=== PATIENT | female | born 1950 | race Caucasian/White ===

== ENCOUNTER 2020-05-21 06:55 | Outpatient (NON) | payer MEDICARE, OTHER, SELFPAY ==
[2020-05-21 18:16] LABS: SARS-CoV-2 RNA PCR Negative
== END 2020-05-21 06:56 ==
PROVIDERS: PCP Family Medicine; Visit Provider Physician Assistant
DX: R09.89 Other specified symptoms and signs involving the circulatory and respiratory systems (principal); Z20.828 Contact with and (suspected) exposure to other viral communicable diseases
CPT/HCPCS: 87635; C9803; U0003

== ENCOUNTER → 2020-05-24 09:45 | Outpatient (CLI) | payer MEDICARE, SELFPAY ==
--- NOTE | ~2020-05-24 | XR_ITS ---
XR chest 2V DATE: 05/24/2020 10:04 INDICATION: Cough TECHNIQUE: PA and lateral views COMPARISON: 05/04/2015 PA and lateral views FINDINGS: No pulmonary infiltrate or consolidation, pleural effusion or pulmonary vascular congestion or pneumothorax. No hilar or mediastinal enlargement. Heart size is within normal limits. Moderate osteopenia. IMPRESSION: No active cardiopulmonary disease Reviewed, dictated and finalized at location A.
== END ==
PROVIDERS: PCP Family Medicine; Visit Provider Nurse Practitioner Family
DX: R05 Cough (principal)
CPT/HCPCS: 71046

== ENCOUNTER 2020-06-21 08:49 | Outpatient (CLI) | payer MEDICARE, SELFPAY ==
--- NOTE | ~2020-06-21 | MM_ITS ---
EXAMINATION: MM screening lisa BI w elif HISTORY: Screening TECHNIQUE: Craniocaudal and mediolateral oblique 3-D tomosynthesis images were obtained and synthetic 2-D images were generated. CAD analysis was submitted and interpreted. COMPARISON: Comparison to multiple prior studies sequentially, with oldest reviewed study dated 02/02. BREAST PARENCHYMAL COMPOSITION: There are scattered areas of fibroglandular density. FINDINGS: There is no evidence of suspicious mass, calcification, or architectural distortion to sugg est malignancy in either breast. There has been no suspicious interval change. IMPRESSION: 1. No mammographic evidence of malignancy. 2. Recommend routine screening mammography in one year. BI-RADS Category 1: Negative Reviewed, dictated and finalized at location A. CUTTER
--- NOTE | ~2020-06-21 | DEXA_ITS ---
Bone Density Report Name: Marce Cerrato Age: 70 Sex: Female Ethnicity: White Date of : 1950 Indication: postmenopausal; height loss; hysterectomy; Referring Provider: Geno Bledsoe Study: Bone densitometry was performed. Exam Date: June 21, 2020 Accession number: [id number] Bone Density: Region BMD T-score Z-score Classification AP Spine (L1-L4) 1.130 0.8 3.0 Normal Femoral Neck (Left) 0.753 -0.9 1.0 Normal Total Hip (Left) 0.919 -0.2 1.4 Normal Total Hip Bilateral Avg 0.913 -0.3 1.4 Normal Femoral Neck (Right) 0.722 -1.1 0.8 Osteopenia Total Hip (Right) 0.905 -0.3 1.3 Normal World Health Organization criteria for BMD impression classify patients as: Normal (T-score at or above -1.0), Osteopenia (T-score between -1.0 and -2.5), or Osteoporosis (T-score at or below -2.5). 10-year Fracture Risk(1): Major Osteoporotic Fracture 8.7% Hip Fracture 1.1% Reported Risk Factors: [place] (), Neck BMD=0.722, BMI=36.0 (1) FRAX(R) Version 3.08. Fracture probability calculated for an untreated patient. Fracture probability may be lower if the patient has received treatment. Previous Exams: Region Exam Age BMD T-score BMD Change BMD Change Date g/cm2 vs Baseline vs Previous AP Spine(L1-L4) 06/21/2020 70 1.130 0.8 0.016(1.4%)# 0.033(3.0%)* 02/08/2015 64 1.097 0.5 -0.017(-1.6%)# 0.025(2.3%)# 02/01/2013 62 1.072 0.2 -0.042(-3.8%)# -0.042(-3.8%)# 10/16/2010 60 1.114 0.6 Total Hip(Left) 06/21/2020 70 0.919 -0.2 -0.023(-2.5%)# -0.023(-2.5%) 02/08/2015 64 0.942 0.0 0.000(0.0%)# -0.015(-1.6%)# 02/01/2013 62 0.957 0.1 0.015(1.6%)# 0.015(1.6%)# 10/16/2010 60 0.942 0.0 Total Hip(Right) 06/21/2020 70 0.905 -0.3 0.011(1.2%)# -0.023(-2.5%) 02/08/2015 64 0.929 -0.1 0.034(3.9%)# 0.002(0.2%)# 02/01/2013 62 0.927 -0.1 0.033(3.7%)# 0.033(3.7%)# 10/16/2010 60 0.894 -0.4 *Denotes significance at 95% confidence level, LSC for AP Spine = 0.022 g/cm2, LSC for Total Hip = 0.027 g/cm2 Clinical Information Provided by Patient: Has used the following medications: Vitamin D, Calcium Has the following medical conditions: Hysterectomy Patient maximum height was 66 Menopause Age: 48 No regular weight bearing exercise Drinks caffeinated beverages Onset of menses at age 11 Number of children 2 Impression: The patient has low bone mass, based on
== END 2020-06-21 08:50 | disposition home or self-care (01) ==
LOC: ANHIMG 08:49
PROVIDERS: PCP Family Medicine; Visit Provider Family Medicine
DX: Z12.31 Encounter for screening mammogram for malignant neoplasm of breast (principal); Z78.0 Asymptomatic menopausal state; M85.851 Other specified disorders of bone density and structure, right thigh
CPT/HCPCS: 77063; 77067; 77080

== ENCOUNTER 2020-08-23 13:32 | Outpatient (CLI) | payer MEDICARE, OTHER, SELFPAY ==
--- NOTE | 2020-08-24 13:54 | P.PCNPFT_ITS ---
PFT Interpretation This is a pulmonary function test with pre and post-bronchodilator spirometry, plethysmography and diffusing capacity. The test was performed and results interpreted in accordance with the 2019 and 2005 ATS/ERS Task Force guidelines respectively using the James/Fidelina reference equations. Findings: Spirometry: There is decreased maximal expiratory airflow at Lung follow-up low lung volumes with a mildly concave expiratory flow tracing. The pre- bronchodilator FVC is 2.86, 99% predicted. The pre-bronchodilator FEV1 is 1.96 L, 95% predicted. The FEV1:FVC ratio is 69%. The post-bronchodilator FVC is 2.88 L, representing a 1% increase. The post-bronchodilator FEV1 is 2.02 L, representing a 3% increase. Plethysmography: The total lung capacity is 5.47 L, 110% predicted. The functional residual capacity is 2.44 L, 103% predicted. The residual volume is 2.42 L, 119% predicted. Diffusing capacity: The absolute diffusing capacity is 18.2, 76% predicted. The diffusing capacity corrected for alveolar volume is 3.97, 112% predicted. Impression: The spirometry demonstrates decreased airflow at low lung volumes with a normal FEV1 and mildly decreased FEV1:FVC ratio. This may be consistent with small airways disease. There is no significant improvement after inhaling a single dose of albuterol. The lung volumes are normal. The absolute diffusing capacity is normal. There are no prior studies for comparison
== END 2020-08-23 13:33 | disposition home or self-care (01) ==
PROVIDERS: PCP Family Medicine; Visit Provider Family Medicine
DX: R05 Cough (principal); R94.2 Abnormal results of pulmonary function studies
CPT/HCPCS: 94060; 94726; 94729

== ENCOUNTER 2020-09-17 06:52 | Outpatient (NON) | payer MEDICARE, SELFPAY ==
[2020-09-17 19:18] LABS: SARS-CoV-2 RNA PCR Positive
== END 2020-09-17 06:53 ==
LOC: ANHCOVIDDT 06:54
PROVIDERS: PCP Family Medicine; Visit Provider Nurse Practitioner Family
DX: U07.1 COVID-19 (principal)
CPT/HCPCS: C9803; U0003; U0005

== ENCOUNTER → 2021-01-14 09:45 | Outpatient (CLI) | payer MEDICARE, SELFPAY ==
--- NOTE | ~2021-01-14 | XR_ITS ---
EXAMINATION: XR knee RT 3V DATE: 01/14/2021 09:57 INDICATION: Right knee pain. TECHNIQUE: 3 views of right knee were obtained. COMPARISON: Right knee radiographs 02/08/2017 FINDINGS: Bone alignment is normal. There is mild tricompartmental osteoarthritis. There is a small k nee joint effusion. IMPRESSION: 1. Mild right knee osteoarthritis. 2. Small right knee joint effusion. Reviewed, dictated and finalized at location A.
== END ==
PROVIDERS: PCP Family Medicine; Visit Provider Physician Assistant
DX: M17.11 Unilateral primary osteoarthritis, right knee (principal); M25.461 Effusion, right knee
CPT/HCPCS: 73562

== ENCOUNTER 2021-07-17 07:23 | Observation (INO) | payer MEDICARE, OTHER, SELFPAY ==
[2021-07-17] VITALS (55 sets, daily range): BP systolic 113–188; BP diastolic 70–99; PULSE 69–115; RESP 14–32; TEMP 36.6–37; O2SAT 92–100; BMI 31.2
--- NOTE | 2021-07-17 | ECHO_ITS ---
Patient Info Name: Marce Cerrato Age: 71 years : 1950 Gender: Female Ht: 65 in Wt: 209 lbs BSA: 2.12 m2 HR: 68 bpm BP: 188 / 93 mmHg Technical Quality: Fair Exam Date: 07/17/2021 11:13 AM Exam Location: [facility] Patient Status: Emergency Admit Date: 07/17/2021 Staff Ordering Physician: Armando Cobos DO Cuff Presser: Karlee Merida RDCS Attending Provider: Mg Willson MD Referring Physician: Papito RAJPUT; Exam Type: CA echo doppler color flow Study Info Indications R07.9 - Chest pain, unspecified Complete two-dimensional, color flow and Doppler transthoracic echocardiogram is performed. Summary 1. Complete two-dimensional, color flow and Doppler transthoracic echocardiogram is performed. 2. Left ventricular chamber dimension is normal. 3. Left ventricular systolic function is normal, estimated at 60-65%. 4. The left ventricular diastolic function is grade I diastolic dysfunction. 5. E/e' 6 is not elevated. 6. The mitral valve has mildly calcified annulus. 7. No pulmonary hypertension, estimated pulmonary arterial systolic pressure is 26 mmHg. Left Ventricle E/e' 6 is not elevated. Left ventricular chamber dimension is normal. Left ventricular systolic function is normal, estimated at 60-65%. The left ventricular diastolic function is grade I diastolic dysfunction. Right Ventricle Right ventricular chamber dimension is normal. Right ventricular systolic function is normal. Left Atria Left atrial chamber dimension is normal. Right Atria Right atrial chamber dimension is normal. Aortic Valve The aortic valve is trileaflet. There is no aortic valve stenosis. There is no aortic valve regurgitation. Pulmonic Valve There is no pulmonic regurgitation. Mitral Valve The mitral valve has mildly calcified annulus. There is no mitral valve stenosis. There is no mitral valve regurgitation. Tricuspid Valve There is no tricuspid valve regurgitation. No pulmonary hypertension, estimated pulmonary arterial systolic pressure is 26 mmHg. Pericardium/Pleural There is no pericardial effusion. Inferior Vena Cava Normal inferior vena cava with >50% collapse upon inspiration consistent with normal right atrial pressure, 5 mmHg. Aorta The aortic root size at the sinus of Valsalva is normal. Left Ventricular Outflow Tract Name Value Normal LVOT 2D LVOT Diameter 2.0 cm LVOT Doppler LVOT Peak Gradient 4 mmHg LVOT Mean Gradient 3 mmHg LVOT VTI 21 cm LVOT VTI/AV VTI Ratio 0.9 LVOT Stroke Volume 66 ml LVOT CO 4.8 l/min LVOT CI 2.3 l/min/m2 Pulmonic Valve Name Value Normal RVOT Doppler RVOT Peak Gradi
--- NOTE | ~2021-07-17 | XR_ITS ---
EXAMINATION: XR chest 1V portable DATE: 07/17/2021 07:52 INDICATION: Chest pain TECHNIQUE: frontal view of the chest was obtained. COMPARISON: Chest radiograph dated 05/24/2020 FINDINGS: Slight interval decrease in lung volumes with mild streaky bibasilar atelectasis. No pulmonary edema, pleural effusion or pneumothorax. The cardiomediastinal silhouette is normal. Mild lower thoracic le vocurvature with moderate spondylosis. IMPRESSION: 1. Mild streaky bibasilar atelectasis. Reviewed, dictated and finalized at location A. K BREAKER OPERATOR
--- NOTE | ~2021-07-17 | NM_ITS ---
EXAMINATION: NM luda stress w perfusion DATE: 07/18/2021 09:37 INDICATION: Chest pain TECHNIQUE: Rest images were obtained following intravenous administration of 10.55 mCi Tc99m tetrofos min (Myoview). The patient was infused intravenously with Lexiscan (Regadenoson). Then, 32.67 mCi Tc9 9m tetrofosmin (Myoview) was administered intravenously, and stress images were obtained in supine po sition. Repeat stress images were obtained in the prone position. Data was reconstructed into short a xis and horizontal and vertical long axis SPECT images. Gated SPECT images were also obtained. COMPARISON: None. FINDINGS: There is no definite reversible or fixed perfusion abnormality to suggest ischemia or infar ction. There is normal left ventricular chamber size, wall motion and ejection fraction. Left ventr icular ejection fraction measures >70%. IMPRESSION: 1. Normal myocardial perfusion at rest and during stress. 2. Left ventricular ejection fraction measuring >70%. Reviewed, dictated and finalized at location A. AS MARKER
--- NOTE | 2021-07-17 08:07 | ECG_ITS ---
Measurements Intervals [place] Rate: 110 P: 7 [place]: 155 QRS: 1 QRSD: 106 T: 29 QT: 343 QTc: 465 Interpretive Statements SINUS TACHYCARDIA INCOMPLETE RIGHT BUNDLE BRANCH BLOCK DELAYED PRECORDIAL R/S TRANSITION BASELINE ARTIFACT- II, III, AVR, V1 ABNORMAL ECG Electronically Signed On 07-17-2021 14:53:36 WIRE DRAWING MACHINE TENDER by Armando Cobos D.O.
[2021-07-17] MEDS: ASPIRIN 81 MG CHEWABLE TABLET 324 MG PO (08:15)
--- NOTE | 2021-07-17 08:34 | ED.CHESTPAIN ---
HPI - Chest Pain General Chief Complaint: Chest Pain Stated Complaint: chest pain Time Seen by Provider: 07/17/21 07:28 Source: patient and family Mode of arrival: ambulatory Limitations: no limitations History of Present Illness HPI narrative: Patient presents with central chest heaviness associated with shortness of breath started 1:30 last night while trying to go to bed. Radiating to the upper back, and throat. Patient denies aggravating or relieving factors, the pain has been constant since, slightly less painful compared to earlier hours. Patient is fully vaccinated for COVID-19. Patient denies any fever, chills, nausea, vomiting, coughing or abdominal pain. History of GERD, on vitamins, drinks occasionally, positive family history of coronary artery disease Related Data Home Medications Medication Instructions Recorded Confirmed calcium carbonate 600 mg calcium 600 mg PO DAILY 07/27/19 02/18/21 (1,500 mg) tablet cholecalciferol (vitamin D3) 25 25 mcg PO DAILY 07/27/19 02/18/21 mcg (1,000 unit) capsule loperamide 2 mg tablet 2 mg PO Q4H PRN 07/27/19 02/18/21 multivit with 1 tablet PO DAILY 07/27/19 02/18/21 ibhndwsq-pgim-ET-lutein 8 mg iron-400 mcg-300 mcg tablet vit C 250 mg-vit E 90 mg-zinc 40 1 tablet PO ONCE cap 07/27/19 02/18/21 mg-copper 1 fw-unaslk-wwzhec capsule famotidine 20 mg tablet 20 mg PO DAILY 08/19/20 02/18/21 Allergies Allergy/AdvReac Type Severity Reaction Status Date / Time tramadol Allergy Mild unk Verified 02/18/21 09:29 codeine Allergy Unknown Unknown Verified 02/18/21 09:29 Review of Systems Review of Systems: CONSTITUTIONAL: Denies fever, chills, or sweats. EYES: Denies visual changes, redness, or discharge. ENT: Denies rhinorrhea, congestion, sore throat, or otalgia. CARDIOVASCULAR: Denies chest pain, palpitations, or edema. RESPIRATORY: Denies cough or dyspnea. GASTROINTESTINAL: Denies abdominal pain, nausea, vomiting, or diarrhea. GENITOURINARY: Denies dysuria or hematuria. SKIN: Denies rash or itching. MUSCULOSKELETAL: Denies back pain, joint pain, or myalgia. NEUROLOGIC: Denies headache, numbness, or weakness. PSYCHIATRIC: Denies anxiety or depression. [facility] Past Medical History Medical History Gastroesophageal reflux disease Surgical History Surgical History History of bladder suspension procedure History of hysterectomy History of unilateral oophorectomy Social History Social History Smoking status: Never smoker Second hand tobacco smoke exposure: Yes Alcohol intake: current Drinks per week: 1 Substance use: never Substance use type: does not use Gender identity (if verbalized by the patient): Female Sexual Orientation (if Verbalized by the Patient): Straight or Heterosexual Exam Narrative: General appearance: Well-developed, well-nourished Skin: Normal color Head: Normocephalic, nontraumatic Eyes: Clear conjunctiva ENT: Oropharynx normal, ears normal, nose normal Neck: Supple, nontender Chest and respiratory: Airway patent, no respiratory distress, no accessory muscle use, mild diffuse distal sternal tenderness Heart: Regular rate/rhythm Abdomen: Soft, nontender, no organomegaly, quiet bowel sounds Vascular: Normal peripheral pulses, normal capillary refill. Musculoskeletal: Normal range of motion, nontender back Neurologic: Alert and oriented ?3, WIRE SAWYER is normal as tested, no gross motor deficit Course Course Emergency Course: Stable Vital Signs Vital signs: Vital Signs Temperature 36.6 C
[2021-07-17 08:41] LABS: Basophils Percent Auto 0.2 % (0.2-1.2); Eosinophils Absolute Auto 0.1 K/mm3 (0-0.3); Eosinophils Percent Auto 0.4 % (0-4.4); Hematocrit 42.4 % (37.0-47.0); Hemoglobin 13.8 g/dL (12.0-15.0); Immature Granulocyte Absolute 0.04 K/mm3 (0.00-0.031); Immature Granulocyte Percent A 0.3 % (0-0.5); Lymphocytes Absolute Auto 1.33 K/mm3 (0.9-3.2); Lymphocytes Percent Auto 10.3 % (18.3-44.2); Mean Corpuscular HGB Conc 32.5 g/dl (32-36); Mean Corpuscular Hemoglobin 30.1 pg (26-34); Mean Corpuscular Volume 92.6 fl (80-100); Mean Platelet Volume 10.8 fl (7.4-10.4); Monocytes Absolute Auto 0.7 K/mm3 (0.1-0.6); Monocytes Percent Auto 5.7 % (2.6-8.5); Neutrophils Absolute Auto 10.7 K/mm3 (1.3-6.7); Neutrophils Percent Auto 83.1 % (45.5-73.1); Platelet Count Result 197 k/mm3 (150-375); Red Blood Count 4.58 M/mm3 (4.2-5.4); Red Cell Distribution Width 13.4 % (11.5-14.5); White Blood Count 12.9 K/mm3 (4.5-10.0)
[2021-07-17 08:53] LABS: Alanine Aminotransferase 24 U/L (4-35); Albumin Level 4.7 g/dL (3.5-5.1); Alkaline Phosphatase 125 U/L (38-126); Anion Gap 10 mmol/L (8-16); Aspartate Amino Transferase 29 U/L (14-36); Bilirubin,Total 0.6 mg/dL (0.2-1.3); Blood Urea Nitrogen 16 mg/dL (7-17); Calcium 9.5 mg/dL (8.4-10.2); Carbon Dioxide 26 mmol/L (22-30); Chloride 101 mmol/L (98-107); Estimated CRCL calculation 70 ml/min; Estimated Glomerular Filt Rate > 60; Glucose 123 mg/dL (65-110); Potassium 4.1 mmol/L (3.4-5.0); Prothrombin Time 13.1 Seconds (11.1-14.7); Sodium 137 mmol/L (137-145)
[2021-07-17 08:54] LABS: Partial Thromboplastin Time 24.2 SECONDS (22.3-36.8)
[2021-07-17 08:56] LABS: D Dimer 0.49 ug/mL (<0.48)
[2021-07-17 09:04] LABS: NT Pro B Type Natriuretic Pept 34 pg/mL (5-100); Troponin I < 0.012 ng/mL (0.000-0.034)
[2021-07-17] MEDS: METOPROLOL TARTRATE TAB 25 MG, METOPROLOL TARTRATE TAB 12.5 MG 37.5 MG PO (10:19)
[2021-07-17] MEDS: NITROGLYCERIN OINTMENT 1 INCH DOSE TRANSDERM (11:19)
--- NOTE | 2021-07-17 11:34 | PM.IMHP ---
H&P: HPI History of Present Illness Date/Time: 07/17/21 11:34 Reason for consult: Chest pain. 71 yr old woman presented to ER for chest pains. She has a history of colitis, small airway disease, mild dyslipidemia not on treatment, mild hypertension and not on treatment, covid infection on 09/17/20. Reports that she was up on her I-Pad last night and at 1:30 am she noted severe chest pressure like an elephant sitting on her chest. She then went to sit on her recliner and dozed off and woke up later with similar chest pains. Pain radiates to her back. She decided to come in to ER for evaluation. Currently after receiving aspirin her cp is at 1/10 and she is resting comfortably. She can walk a couple of blocks without any problems. She has caught herself waking up and had trouble breathing thinking it could be sleep apnea and has some daytime sleepiness. Denies orthopnea, PND, edema, dizziness, palpitations. Had Lexiscan myoview on 07/15/20 that was normal. PFT on 08/24/20 shows small airway disease. Chief Complaint: Chest pain Review of Systems Review of Systems: All systems reviewed & are unremarkable except as noted in HPI and below Constitutional: Constitutional: Reports as per HPI, Denies chills, Reports daytime sleepiness and Denies fever(s) Cardiovascular: Cardiovascular: Reports as per HPI, Reports chest pain, Denies irregular heart rhythm, Denies leg edema and Denies lightheadedness Respiratory: Respiratory: Reports as per HPI and Denies dyspnea Gastrointestinal: Gastrointestinal: Reports as per HPI and Denies abdominal pain Genitourinary: Genitourinary: Reports as per HPI and Denies dysuria Musculoskeletal: Musculoskeletal: Reports as per HPI Neurologic: Reports as per HPI, Denies dizziness and Denies syncope [facility] Past Medical History Medical History Gastroesophageal reflux disease Surgical History Surgical History History of bladder suspension procedure History of hysterectomy History of unilateral oophorectomy Social History Social History Smoking status: Never smoker Second hand tobacco smoke exposure: Yes Alcohol intake: current Drinks per week: 1 Substance use: never Substance use type: does not use Gender identity (if verbalized by the patient): Female Sexual Orientation (if Verbalized by the Patient): Straight or Heterosexual Meds Home Medications and Allergies Home Medications Medication Instructions Recorded Confirmed Type calcium carbonate 600 mg calcium 600 mg PO DAILY 07/27/19 02/18/21 History (1,500 mg) tablet cholecalciferol (vitamin D3) 25 25 mcg PO DAILY 07/27/19 02/18/21 History mcg (1,000 unit) capsule loperamide 2 mg tablet 2 mg PO Q4H PRN 07/27/19 02/18/21 History multivit with 1 tablet PO DAILY 07/27/19 02/18/21 History zwhvfjsq-oaki-RC-lutein 8 mg iron-400 mcg-300 mcg tablet vit C 250 mg-vit E 90 mg-zinc 40 1 tablet PO ONCE cap 07/27/19 02/18/21 History mg-copper 1 ds-jdgxru-xrdpth capsule famotidine 20 mg tablet 20 mg PO DAILY 08/19/20 02/18/21 History albuterol sulfate 90 mcg/actuation See Rx Instructions INHALATION Q4H 09/18/20 02/18/21 Rx aerosol inhaler PRN #6.7 g sulfamethoxazole 800 1 tablet PO Q12H #6 tablet 05/07/21 Rx mg-trimethoprim 160 mg tablet Allergies Allergy/AdvReac Type Severity Reaction Status Date / Time tramadol Allergy Mild unk Verified 02/18/21 09:29 codeine Allergy Unknown Unknown Verified 02/18/21 09:29 Vital Signs Vital Signs - 24 hr 07/17/21 07:27 07/17/21 07:35 07/17/21 07:45 Temperature 97.8 F 97.8 F Pulse Rate 102 H 102 H 115 H Respiratory Rate 20 20 19 Blood Pressure 188/93 H 188/93 H Pulse Oximetry 97 100 92 07/17/21 07:46 07/17/21 08:28 07/17/21 08:30 Temperature Pulse Rate 113 H 101 H Respiratory Rate 23 H 20 16 Blood
[2021-07-17 11:52] LABS: Troponin I < 0.012 ng/mL (0.000-0.034)
[2021-07-17 15:44] LABS: Troponin I < 0.012 ng/mL (0.000-0.034)
--- NOTE | 2021-07-17 20:05 | ADMGEN ---
This patient, Marce Cerrato, was admitted to [facility]. Patient/family oriented to hospital policies and general routines including ID bracelet, bed and alarms, visiting hours, pain management, procedures, bathroom and other care routines, personal items, smoking policy, room service/diet, and visiting hours. Information on how to activate the Rapid Response Team has been discussed. Patient/Family are encouraged to report perceived risks to care and to ask questions if they do not understand what they are told or what they should do.
[2021-07-18] VITALS (8 sets, daily range): BP systolic 117–135; BP diastolic 62–77; PULSE 72–85; RESP 18–19; TEMP 36.6–36.7; O2SAT 92–96
--- NOTE | 2021-07-18 08:00 | EST_ITS ---
Patient Info Name: Marce Cerrato Age: 71 years : 1950 Gender: Female Ht: 65 in Wt: 187 lbs BSA: 2.00 m2 HR: 87 bpm BP: 116 / 64 mmHg Heart Rhythm: Sinus Rhythm Exam Date: 07/18/2021 8:13 AM Exam Location: [facility] Stress Patient Status: Inpatient Admit Date: 07/17/2021 Staff Ordering Physician: Armando Cobos DO Attending Provider: Armando Cobos DO Exercise Technologist: Pippa Thompson CT Exercise Physician: Armando Cobos DO Exam Type: CA stress luda w NM Study Info Indications R07.9 - Chest pain, unspecified A regadenoson stress test was performed. Summary 1. 1. Negative lexiscan stress test for ischemic ST changes by ECG criteria. 2. 2. Stable hemodynamics throughout the test. 3. 3. Nuclear scan to follow and will be reported separately. Please correlate with it. 4. 4. Patient informed of the above results. Protocol: Lexiscan Stress ECG Details Stage: REST Duration (min): 1 min : 5 sec HR (bpm): 85 SBP (mmHg): 116 DBP (mmHg): 64 Stage: REST Duration (min): 7 min : 35 sec HR (bpm): 84 SBP (mmHg): 116 DBP (mmHg): 64 Stage: STAGE 1 Duration (min): 0 min : 59 sec HR (bpm): 100 SBP (mmHg): 134 DBP (mmHg): 53 Stage: RECOVERY Duration (min): 1 min : 0 sec HR (bpm): 104 SBP (mmHg): 134 DBP (mmHg): 53 Stage: RECOVERY Duration (min): 2 min : 0 sec HR (bpm): 102 SBP (mmHg): 134 DBP (mmHg): 53 Stage: RECOVERY Duration (min): 2 min : 28 sec HR (bpm): 100 SBP (mmHg): 117 DBP (mmHg): 53 Rest HR: 84 bpm Peak HR: 105 bpm Rest Sys BP: 116 mmHg Peak Sys BP: 134 mmHg Max Pred HR: 147 bpm % Max Pred HR: 71 % Target HR: 125 bpm Max RPP: 14,070 bpm*mmHg Termination Reason: Completed protocol Cardiac Symptoms: None Total Time: 1 min : 0 sec Rest Ray BP: 64 mmHg Peak Ray BP: 53 mmHg Total Dose: 0.4 mg Resting ECG Sinus rhythm. Stress ECG No ST changes. Arrhythmias None. Report Signatures
--- NOTE | 2021-07-18 10:48 | P.DS_ITS ---
DS: Admitting Diagnosis Discharge Date 07/18/21 Admitting Diagnosis Chest pain DS: Summary Hospital Course Hospital Course: Patient was admitted for chest pain radiating to her back. She was given aspirin and NTP and pain resolved. She was r/o for CO by troponin and EKG. She had lexiscan myoview stress test that shows no ischemia. Echo is completely normal. Vitals are stable. She will be discharged home and f/u with me in 2 weeks. Time Spent with Patient Time attestation: Total time spent providing and/or coordinating discharge services: Time spent: Less than 30 minutes Exam Const: General: cooperative, healthy appearing and comfortable Nutritional Appearance: obese Resp: Auscultation: clear to auscultation bilaterally, no crackles, no rales, no rhonchi and no wheezes Cardio: Jugular venous distension: no JVD Rate: regular rate Rhythm: regular rhythm Heart sounds: no murmurs Peripheral pulses: dorsalis pedis present GI: GI Palp: No abdominal tenderness and Yes Soft to palpation Neuro: General: oriented to person, oriented to place and oriented to time Extrem: Right lower extremity: no edema Left lower extremity: no edema DS: Data Data Completed and Pending Labs on day of discharge: Labs from last 24 hours 07/17/21 07/17/21 14:21 11:17 Troponin I < 0.012 < 0.012 Discharge Plan Discharge Discharging Clinician: Armando Cobos Patient Disposition: Home, Self-Care Activity: as tolerated Diet: regular Patient Instructions: Antibiotic Form Stand Alone Forms: General Discharge Information Follow-up/Referrals: Armando Cobos, DO [Physician] - (F/U 2 weeks) Discharge Medications: No Action Centrum Silver Women 8 mg iron-400 mcg-300 mcg tablet 1 tablet PO DAILY RF: 0 PreserVision AREDS-2 [id number] mn-vwvs-gl-mg capsule 1 tablet PO ONCE RF: 0 cholecalciferol (vitamin D3) [Vitamin D3] 25 mcg (1,000 unit) capsule 25 mcg PO DAILY RF: 0 calcium carbonate 600 mg calcium (1,500 mg) tablet 600 mg PO DAILY RF: 0 famotidine [Pepcid AC] 20 mg tablet 20 mg PO DAILY RF: 0 fluticasone propionate [Flonase] 50 mcg/actuation [place],Suspension 1 spray INTRANASAL DAILY RF: 0 Date of admission: 07/17/21 10:10 Primary Care Provider: Ajay Irvin Admitting Provider: Armando Cobos Attending physician on admission: Armando Cobos Condition: Serious
[2021-07-18] MEDS: ASPIRIN 81 MG CHEWABLE TABLET PO (11:18)
== END 2021-07-18 13:18 | disposition home or self-care (01) ==
LOC: ANHED 08:15 → ANHCPC 13:38
PROVIDERS: Admitting Provider Internal Medicine Cardiovascular Disease; Emergency Provider Emergency Medicine; PCP Family Medicine; Visit Provider Internal Medicine Cardiovascular Disease
DX: R07.9 Chest pain, unspecified (principal); K21.9 Gastro-esophageal reflux disease without esophagitis; G47.10 Hypersomnia, unspecified; R06.02 Shortness of breath; I10 Essential (primary) hypertension; E78.5 Hyperlipidemia, unspecified
CPT/HCPCS: 36415; 71045; 78452; 80053; 83880; 84484; 85025; 85380; 85610; 85730; 93005; 93017; 93306; 99285; A9270; A9502; G0378; J2785

== ENCOUNTER 2021-07-31 15:18 | Outpatient (CLI) | payer MEDICARE, SELFPAY ==
--- NOTE | ~2021-07-31 | MM_ITS ---
EXAMINATION: MM screening lisa BI w elif HISTORY: Screening mammogram TECHNIQUE: Craniocaudal and mediolateral oblique 3-D tomosynthesis images were obtained and synthetic 2-D images were generated. CAD analysis was submitted and interpreted. COMPARISON: 06/21/2020, 06/12/2019, 06/02/2018 bilateral screening mammogram examinations BREAST PARENCHYMAL COMPOSITION: There are scattered areas of fibroglandular density. FINDINGS: There is no evidence of suspicious mass, calcification, or architectural distortion to sugg est malignancy in either breast. There has been no suspicious interval change. IMPRESSION: 1. No mammographic evidence of malignancy. 2. Recommend routine screening mammography in one year. BI-RADS Category 1: Negative Reviewed, dictated and finalized at location A. CE MACHINE SERVICER
== END 2021-07-31 15:19 | disposition home or self-care (01) ==
LOC: ANHIMG 15:23
PROVIDERS: PCP Family Medicine; Visit Provider Family Medicine
DX: Z12.31 Encounter for screening mammogram for malignant neoplasm of breast (principal)
CPT/HCPCS: 77063; 77067

== ENCOUNTER 2022-01-25 09:19 | Emergency (ER) | payer MEDICARE, SELFPAY ==
[2022-01-25] VITALS (14 sets, daily range): BP systolic 128–172; BP diastolic 67–88; PULSE 80–96; RESP 14–30; TEMP 36.6; O2SAT 91–99
--- NOTE | ~2022-01-25 | CT_ITS ---
EXAMINATION: CT abdomen pelvis wo con DATE: 01/25/2022 11:03 INDICATION: Loose red stool. TECHNIQUE: Computed tomography (CT) of the abdomen and pelvis was performed without intravenous contr ast. The dose-length product was 1120.66 mGy-cm. Automated exposure control and iterative reconstruct ion technique were employed. COMPARISON: CT dated 02/08/2017. FINDINGS: There is right middle lobe and lingular atelectasis. Heart size normal. No significant pleu ral or pericardial effusion. The liver, spleen, pancreas, adrenal glands and kidneys are unremarkable. Bladder is decompressed. Ga llbladder is present. There is mild atherosclerosis without aneurysm. No lymphadenopathy. There is mild thickening of the descending colon with subtle pericolonic fatty infiltration, consiste nt with colitis. No obstruction. No free air or free fluid. IMPRESSION: 1. Thickened descending and proximal sigmoid colon with surrounding mild inflammation, consistent wit h colitis, most likely infectious or inflammatory. 2: Right middle lobe and lingular atelectasis. Reviewed, dictated and finalized at location A. IMPRESSION: 1. Thickened descending and proximal sigmoid colon with surrounding mild inflam mation, consistent with colitis, most likely infectious or inflammatory. 2: Right middle lobe and lingular atelectasis.
[2022-01-25 10:01] LABS: Basophils Absolute Auto 0.1 K/mm3 (0.0-0.1); Basophils Percent Auto 0.4 % (0.2-1.2); Eosinophils Absolute Auto 0.1 K/mm3 (0-0.3); Eosinophils Percent Auto 1.1 % (0-4.4); Hematocrit 40.9 % (37.0-47.0); Hemoglobin 13.2 g/dL (12.0-15.0); Immature Granulocyte Absolute 0.04 K/mm3 (0.00-0.031); Immature Granulocyte Percent A 0.3 % (0-0.5); Lymphocytes Absolute Auto 2.58 K/mm3 (0.9-3.2); Lymphocytes Percent Auto 22.4 % (18.3-44.2); Mean Corpuscular HGB Conc 32.3 g/dl (32-36); Mean Corpuscular Hemoglobin 29.6 pg (26-34); Mean Corpuscular Volume 91.7 fl (80-100); Mean Platelet Volume 10.2 fl (7.4-10.4); Monocytes Absolute Auto 0.6 K/mm3 (0.1-0.6); Monocytes Percent Auto 5.5 % (2.6-8.5); Neutrophils Absolute Auto 8.1 K/mm3 (1.3-6.7); Neutrophils Percent Auto 70.3 % (45.5-73.1); Platelet Count Result 262 k/mm3 (150-375); Red Blood Count 4.46 M/mm3 (4.2-5.4); Red Cell Distribution Width 13.6 % (11.5-14.5); White Blood Count 11.5 K/mm3 (4.5-10.0)
[2022-01-25 10:12] LABS: INR 1.1; Prothrombin Time 13.3 Seconds (11.1-14.7)
[2022-01-25 10:13] LABS: Alanine Aminotransferase 30 U/L (6-35); Albumin Level 4.2 g/dL (3.5-5.1); Alkaline Phosphatase 119 U/L (38-126); Anion Gap 8 mmol/L (8-16); Aspartate Amino Transferase 25 U/L (14-36); Bilirubin,Total 0.7 mg/dL (0.2-1.3); Blood Urea Nitrogen 17 mg/dL (7-17); Calcium 9.3 mg/dL (8.4-10.2); Carbon Dioxide 27 mmol/L (22-30); Chloride 105 mmol/L (98-107); Estimated CRCL calculation 62 ml/min; Estimated Glomerular Filt Rate > 60; Glucose 105 mg/dL (65-110); Partial Thromboplastin Time 25.4 SECONDS (22.3-36.8); Potassium 3.8 mmol/L (3.4-5.0); Sodium 140 mmol/L (137-145)
--- NOTE | 2022-01-25 10:30 | ED.GIBLEED ---
HPI - GI Bleed General Chief complaint: GI Bleed Stated complaint: Rectal Bleeding Time Seen by Provider: 01/25/22 09:26 Source: patient, RN notes reviewed and old records reviewed Mode of arrival: ambulatory Limitations: no limitations History of Present Illness HPI Narrative: This is 71 year old female who presents for evaluation of rectal bleeding. Patient states last night she developed lower abdominal cramping pain. This pain is associated with multiple episode of diarrhea initially. She has continued to have this constant cramping but it worsens when she needs to have bowel movement. This morning around 8 30 am she started passing bright red blood with clots. She denies fever, chills, nausea or vomiting. She was diagnosed several years ago with colitis, but she is not had any issue since. Her last colonoscopy was [address] Potts. Related Data Home Medications Medication Instructions Recorded Confirmed calcium carbonate 600 mg calcium 600 mg PO DAILY 07/27/19 08/25/21 (1,500 mg) tablet cholecalciferol (vitamin D3) 25 25 mcg PO DAILY 07/27/19 08/25/21 mcg (1,000 unit) capsule (Vitamin D3) multivit with 1 tablet PO DAILY 07/27/19 08/25/21 pbrcvgfl-mxef-WD-lutein 8 mg iron-400 mcg-300 mcg tablet (Centrum Silver Women) vit C 250 mg-vit E 90 mg-zinc 40 1 tablet PO ONCE 07/27/19 08/25/21 mg-copper 1 yv-hgeraq-yvitjy capsule (PreserVision AREDS-2) famotidine 20 mg tablet (Pepcid AC) 20 mg PO DAILY 08/19/20 08/25/21 fluticasone propionate 50 1 spray intranasal DAILY 07/17/21 08/25/21 mcg/actuation nasal spray,suspension Allergies Allergy/AdvReac Type Severity Reaction Status Date / Time tramadol Allergy Mild unk Verified 01/25/22 10:00 codeine Allergy Unknown Unknown Verified 01/25/22 10:00 Review of Systems Review of Systems: All systems reviewed & are unremarkable except as noted in HPI and below Constitutional: Constitutional: Denies chills and Reports fatigue Cardiovascular: Cardiovascular: Denies chest pain and Denies rapid heart rate Respiratory: Respiratory: Denies chest congestion and Denies cough Gastrointestinal: Gastrointestinal: Reports abdominal pain and Reports diarrhea Genitourinary: Genitourinary: Denies pelvic pain Musculoskeletal: Musculoskeletal: Denies back pain [facility] Past Medical History Medical History (Updated 01/25/22 @ 12:07 by Alondra Gimenez MD) Colitis Gastroesophageal reflux disease HTN (hypertension) Mixed hyperlipidemia Obesity Surgical History Surgical History History of bladder suspension procedure History of hysterectomy History of unilateral oophorectomy Family History Family History Father Diabetes mellitus Acute myocardial infarction Cerebrovascular accident Social History Social History Smoking status: Never smoker Second hand tobacco smoke exposure: Yes ( was smoker) Alcohol intake: current Drinks per week: 1 Alcohol use details: glass of wine Substance use: never Substance use type: does not use Gender identity (if verbalized by the patient): Female Sexual Orientation (if Verbalized by the Patient): Straight or Heterosexual Spiritual care concerns: No Exam Narrative: GENERAL: Well-appearing, well-nourished, and in no acute distress. HEAD: Normocephalic, atraumatic EYES: PERRLA and EOMI, conjunctiva clear without discharge THROAT:Mucous membranes moist, Oropharynx normal without erythema, exudate, peritonsillar swelling or fluctuance NECK: Supple, without lymphadenopathy or mass RESPIRATORY: No respiratory distress, Airway patent, Respirations non-labored, Clear to auscultation without rales, rhonchi or wheeze HEART: Regular rate and rhythm. No murmur heard. Normal peripheral pulses. ABDOMEN: Soft, nontende
[2022-01-25 10:49] LABS: Lactic Acid Reflex 1.3 mmol/L (0.7-2.0)
== END 2022-01-25 12:16 | disposition home or self-care (01) ==
PROVIDERS: Emergency Provider General Practice; PCP Family Medicine
DX: K52.9 Noninfective gastroenteritis and colitis, unspecified (principal); K21.9 Gastro-esophageal reflux disease without esophagitis; I10 Essential (primary) hypertension; E78.2 Mixed hyperlipidemia; E66.9 Obesity, unspecified; Z68.34 Body mass index [BMI] 34.0-34.9, adult; Z77.22 Contact with and (suspected) exposure to environmental tobacco smoke (acute) (chronic)
CPT/HCPCS: 36415; 74176; 80053; 83605; 85025; 85610; 85730; 86850; 86900; 86901; 99284

== ENCOUNTER 2022-04-02 00:22 | Day surgery (SDC) | payer MEDICARE, SELFPAY ==
[2022-03-23 14:22] VITALS: BMI 34.8
--- NOTE | 2022-04-01 13:45 | PM.HPGS ---
History of Present Illness History of Present Illness Consent: Risks, benefits, and alternatives have been discussed and questions answered. Patient agrees to proceed with procedure. Chief complaint: colitis Narrative: Marce Cerrato is a 71 year old female Who had cramping, diarrhea, and rectal bleeding.? symptoms started one Wednesday with mild abdominal cramping with loose stools and fatigue. Reports similar symptoms in the past that she treats with 2-3 Pepto-Bismol tablets with resolution of symptoms.? however when she woke up on a Wednesday she reports passing a large amount of bright red blood per rectum with mucus which prompted her to follow up in the ER. CT scan reveal??mild thickening of the descending colon with subtle pericolonic fatty infiltration, consistent with colitis. No obstruction. No free air or free fluid.? she had slightly elevated white blood cell count 11.5. ? She was discharged with ciprofloxacin 500 mg b.i.d. and Flagyl 500 mg t.i.d.? She reports compliance with medication.? overall she is feeling better.? She continues to have episodes of diarrhea with a great deal of urgency. These occur randomly every few days. She has not seen blood in her stools since last month. Review of Systems Review of Systems: All systems reviewed & are unremarkable except as noted in HPI and below PMFSH Past Medical History Medical History Colitis Gastroesophageal reflux disease HTN (hypertension) Mixed hyperlipidemia Obesity Surgical History Surgical History History of bladder suspension procedure History of hysterectomy History of unilateral oophorectomy Family History Family History Father Diabetes mellitus Acute myocardial infarction Cerebrovascular accident Social History Social History Smoking status: Never smoker Second hand tobacco smoke exposure: Yes ( was smoker) Alcohol intake: current Drinks per week: 1 Alcohol use details: on occasion Substance use: never Substance use type: does not use Living arrangements: alone Gender identity (if verbalized by the patient): Female Sexual Orientation (if Verbalized by the Patient): Straight or Heterosexual Spiritual care concerns: No Meds Home Medications and Allergies Home Medications Medication Instructions Recorded Confirmed Type calcium carbonate 600 mg calcium 600 mg PO DAILY 07/27/19 04/02/22 History (1,500 mg) tablet cholecalciferol (vitamin D3) 25 25 mcg PO DAILY 07/27/19 04/02/22 History mcg (1,000 unit) capsule (Vitamin D3) multivit with 1 tablet PO DAILY 07/27/19 04/02/22 History kvndkbid-pntp-CA-lutein 8 mg iron-400 mcg-300 mcg tablet (Centrum Silver Women) vit C 250 mg-vit E 90 mg-zinc 40 1 tablet PO ONCE 07/27/19 04/02/22 History mg-copper 1 ll-milgne-jemehm capsule (PreserVision AREDS-2) famotidine 20 mg tablet (Pepcid AC) 20 mg PO DAILY 08/19/20 04/02/22 History fluticasone propionate 50 1 spray intranasal DAILY 07/17/21 04/02/22 History mcg/actuation nasal spray,suspension amlodipine 5 mg tablet 5 mg PO DAILY #90 tabs 01/28/22 04/02/22 Rx Saccharomyces boulardii 250 mg 250 mg PO BID 02/17/22 04/02/22 History capsule (Florastor) Allergies Allergy/AdvReac Type Severity Reaction Status Date / Time tramadol Allergy Mild unk Verified 04/02/22 08:23 codeine Allergy Unknown Unknown Verified 04/02/22 08:23 Exam Resp: Auscultation: clear to auscultation bilaterally Cardio: Rate: regular rate Rhythm: regular rhythm GI: GI Palp: Yes Soft to palpation and No Tenderness to palpation present (GI) Assessment and Plan Assessment and plan (1) Colitis: Code(s): K52.9 - Noninfective gastroenteritis and colitis, unspecified Status:
[2022-04-02 08:24] VITALS: BP 142/72; PULSE 80; RESP 18; TEMP 36.4; O2SAT 98; BMI 34.8
[2022-04-02] MEDS: LACTATED RINGERS 1,000 ML 150 ML IV CONT (08:32)
--- NOTE | 2022-04-02 09:11 | WPDANESEPPF ---
Anes - Initial Pre Proc Eval Procedure: Operation Date: 04/02/22 09:30 Proposed Procedures p Colonoscopy - Biju Potts MD Date/Time: 04/02/22 09:11 Surgeon: Biju Potts MD Pre Op Diagnosis: colitis Patient Data Age: 71 Gender: F Height: 1.65 m Weight: 95 kg Last Vital Signs Temp 97.5 F L 04/02/22 08:24 Pulse 80 04/02/22 08:24 Resp 18 04/02/22 08:24 BP 142/72 H 04/02/22 08:24 Pulse Ox 98 04/02/22 08:24 O2 Del Method Room Air 04/02/22 08:24 Allergies Allergy/AdvReac Type Severity Reaction Status Date / Time tramadol Allergy Mild unk Verified 04/02/22 08:23 codeine Allergy Unknown Unknown Verified 04/02/22 08:23 Home Medications Medication Instructions Recorded Confirmed Type calcium carbonate 600 mg calcium 600 mg PO DAILY 07/27/19 04/02/22 History (1,500 mg) tablet cholecalciferol (vitamin D3) 25 25 mcg PO DAILY 07/27/19 04/02/22 History mcg (1,000 unit) capsule (Vitamin D3) multivit with 1 tablet PO DAILY 07/27/19 04/02/22 History skstcimu-bdih-JJ-lutein 8 mg iron-400 mcg-300 mcg tablet (Centrum Silver Women) vit C 250 mg-vit E 90 mg-zinc 40 1 tablet PO ONCE 07/27/19 04/02/22 History mg-copper 1 eq-vylyyt-oqtzqx capsule (PreserVision AREDS-2) famotidine 20 mg tablet (Pepcid AC) 20 mg PO DAILY 08/19/20 04/02/22 History fluticasone propionate 50 1 spray intranasal DAILY 07/17/21 04/02/22 History mcg/actuation nasal spray,suspension amlodipine 5 mg tablet 5 mg PO DAILY #90 tabs 01/28/22 04/02/22 Rx Saccharomyces boulardii 250 mg 250 mg PO BID 02/17/22 04/02/22 History capsule (Florastor) Patient hx anesthesia problems: post op nausea/vomiting Family hx anesthesia problems: none Results Review: All pre-operative results and documents have been reviewed as part of the pre-operative evaluation. [facility] Past Medical History Medical History Colitis Gastroesophageal reflux disease HTN (hypertension) Mixed hyperlipidemia Obesity Surgical History Surgical History History of bladder suspension procedure History of hysterectomy History of unilateral oophorectomy Family History Family History Father Diabetes mellitus Acute myocardial infarction Cerebrovascular accident Social History Social History Smoking status: Never smoker Second hand tobacco smoke exposure: Yes ( was smoker) Alcohol intake: current Drinks per week: 1 Alcohol use details: on occasion Substance use: never Substance use type: does not use Living arrangements: alone Gender identity (if verbalized by the patient): Female Sexual Orientation (if Verbalized by the Patient): Straight or Heterosexual Spiritual care concerns: No Anes - Eval Final PreProcedure Day of Procedure 04/02/22 09:11 Patient weight: obese Heart: regular rate and rhythm Lungs: clear to auscultation Airway: Mallampati scale class II Neurological: alert and oriented Last oral intake: >/= 8 hours ASA classification: II Emergent: no Anesthetic plan: proceed Anesthesia type and monitoring: general GIVS and standard monitoring Results Review: All pre-operative results and documents have been reviewed as part of the pre-operative evaluation. Informed Consent: The patient's anesthetic plan and its attendant risks and benefits were discussed with the patient/family/POA. Questions were solicited and answers provided to the satisfaction of the patient/family/POA.
[2022-04-02 09:39] VITALS: BP 110/63; PULSE 68; RESP 20; O2SAT 99
[2022-04-02 09:49] VITALS: BP 118/65; PULSE 67; RESP 18; O2SAT 100
[2022-04-02 09:59] VITALS: BP 133/69; PULSE 64; RESP 21; O2SAT 100
== END 2022-04-02 10:06 | disposition home or self-care (01) ==
PROVIDERS: PCP Family Medicine; Visit Provider Internal Medicine Gastroenterology
PROC: 0DJD8ZZ Inspection of Lower Intestinal Tract, Via Natural or Artificial Opening Endoscopic (ICD-10-PCS; CPT 45378; principal; 2022-04-02 09:30)
DX: R19.7 Diarrhea, unspecified (principal); K64.8 Other hemorrhoids; I10 Essential (primary) hypertension; E78.2 Mixed hyperlipidemia; K21.9 Gastro-esophageal reflux disease without esophagitis; E66.9 Obesity, unspecified; Z68.34 Body mass index [BMI] 34.0-34.9, adult
CPT/HCPCS: 45380; 88305; J2704; J7120

== ENCOUNTER 2022-10-28 08:55 | Outpatient (CLI) | payer MEDICARE, SELFPAY ==
--- NOTE | ~2022-10-28 | MM_ITS ---
EXAMINATION: MM screening lisa BI w elif HISTORY: Screening mammogram TECHNIQUE: Craniocaudal and mediolateral oblique 3-D tomosynthesis images were obtained and synthetic 2-D images were generated. CAD analysis was submitted and interpreted. COMPARISON: 07/31/2021, 06/21/2020, 06/12/2019 bilateral screening mammogram examinations BREAST PARENCHYMAL COMPOSITION: There are scattered areas of fibroglandular density. FINDINGS: There is no evidence of suspicious mass, calcification, or architectural distortion to sugg est malignancy in either breast. There has been no suspicious interval change. IMPRESSION: 1. No mammographic evidence of malignancy. 2. Recommend routine screening mammography in one year. BI-RADS Category 1: Negative Reviewed, dictated and finalized at location A.
== END 2022-10-28 08:56 | disposition home or self-care (01) ==
LOC: ANHIMG 09:00
PROVIDERS: PCP Family Medicine; Visit Provider Family Medicine
DX: Z12.31 Encounter for screening mammogram for malignant neoplasm of breast (principal)
CPT/HCPCS: 77063; 77067

== ENCOUNTER 2022-12-15 09:20 | Outpatient (CLI) | payer MEDICARE, SELFPAY ==
--- NOTE | ~2022-12-15 | XR_ITS ---
Right Knee Technique: AP, lateral, and sunrise views were obtained. Clinical History: Pain Findings: No fracture or dislocation is seen. Osseous alignment is anatomic. There is mild tricompart mental degenerative spurring. Soft tissues are unremarkable. No joint effusion is seen. Impression: Mild tricompartmental degenerative spurring. Reviewed, dictated and finalized at [facility]. Impression: Mild tricompartmental degenerative spurring.
== END 2022-12-15 09:21 ==
PROVIDERS: PCP Family Medicine; Visit Provider Physician Assistant
DX: M25.569 Pain in unspecified knee (principal); M77.9 Enthesopathy, unspecified
CPT/HCPCS: 73562

== ENCOUNTER 2023-08-13 07:58 | Outpatient (CLI) | payer MEDICARE, SELFPAY ==
--- NOTE | ~2023-08-13 | DEXA_ITS ---
Bone Density Report Name: RYAN LUI Age: 73 Sex: Female Ethnicity: White Date of : 1950 Indication: postmenopausal; screening for osteoporosis; height loss; Referring Provider: MARIA ELENA REYNOLDS Study: Bone densitometry was performed. Exam Date: August 13, 2023 Accession number: [id number] Bone Density: Region BMD T-score Z-score Classification AP Spine(L1-L4) 1.128 0.7 3.2 Normal Femoral Neck (Left) 0.698 -1.4 0.7 Osteopenia Total Hip (Left) 0.929 -0.1 1.7 Normal Femoral Neck (Right) 0.690 -1.4 0.7 Osteopenia Total Hip (Right) 0.824 -1.0 0.8 Normal Total Hip Mean 0.877 -0.6 1.3 Normal World Health Organization criteria for BMD impression classify patients as: Normal (T-score at or above -1.0), Osteopenia (T-score between -1.0 and -2.5), or Osteoporosis (T-score at or below -2.5). 10-year Fracture Risk(1): Major Osteoporotic Fracture 10% Hip Fracture 1.8% Reported Risk Factors: [place] (), Neck BMD=0.690, BMI=36.3 (1) FRAX(R) Version 3.08. Fracture probability calculated for an untreated patient. Fracture probability may be lower if the patient has received treatment. Previous Exams: Region Exam Age BMD T-score BMD Change BMD Change Date g/cm2 vs Baseline vs Previous AP Spine (L1-L4) 08/13/2023 73 1.128 0.7 0.057 (5.3%)# -0.001 (-0.1%) 06/21/2020 70 1.130 0.8 0.058 (5.4%)# 0.033 (3.0%)* 02/08/2015 64 1.097 0.5 0.025 (2.3%)# 0.025 (2.3%)# 02/01/2013 62 1.072 0.2 Total Hip(Left) 08/13/2023 73 0.929 -0.1 -0.028 (-2.9%) 0.010 (1.1%) 06/21/2020 70 0.919 -0.2 -0.038 (-4.0%) -0.023 (-2.5%) 02/08/2015 64 0.942 0.0 -0.015 (-1.6%) -0.015 (-1.6%) 02/01/2013 62 0.957 0.1 Total Hip(Right) 08/13/2023 73 0.824 -1.0 -0.103 (-11.1% -0.081 (-8.9%) 06/21/2020 70 0.905 -0.3 -0.022 (-2.3%) -0.023 (-2.5%) 02/08/2015 64 0.929 -0.1 0.002 (0.2%)# 0.002 (0.2%)# 02/01/2013 62 0.927 -0.1 *Denotes significance at 95% confidence level, LSC for AP Spine = 0.022 g/cm2, LSC for Total Hip = 0.027 g/cm2 # Denotes dissimilar scan types or analysis methods Clinical Information Provided by Patient: Has used the following medications: Calcium Patient maximum height was 67 Menopause Age: 48 No regular weight bearing exercise Drinks caffeinated beverages Onset of menses at age 11 Number of children 2 Impression: [facility]
== END 2023-08-13 07:59 | disposition home or self-care (01) ==
PROVIDERS: PCP Family Medicine; Visit Provider Family Medicine
DX: Z78.0 Asymptomatic menopausal state (principal); M85.89 Other specified disorders of bone density and structure, multiple sites
CPT/HCPCS: 77080

== ENCOUNTER → 2023-08-17 08:25 | Outpatient (CLI) | payer MEDICARE, SELFPAY ==
--- NOTE | ~2023-08-17 | XR_ITS ---
AP view of the pelvis and AP and lateral views of the bilateral hips Clinical history: Pain Findings: No acute fracture or dislocation is seen. Osseous alignment is anatomic. Bilateral hip and SI joint spaces are preserved. Soft tissues are unremarkable. Impression: No significant abnormality is seen. Reviewed, dictated and finalized at [facility]. NT ACQUISITION MANAGER Impression: No significant abnormality is seen.
== END ==
PROVIDERS: PCP Family Medicine; Visit Provider Physician Assistant
DX: M25.551 Pain in right hip (principal)
CPT/HCPCS: 73521

== ENCOUNTER 2023-11-06 07:32 | Outpatient (CLI) | payer MEDICARE, SELFPAY ==
--- NOTE | ~2023-11-06 | MM_ITS ---
EXAMINATION: MM screening lisa BI w elif HISTORY: Screening mammogram TECHNIQUE: Craniocaudal and mediolateral oblique 3-D tomosynthesis images were obtained and synthetic 2-D images were generated. CAD analysis was submitted and interpreted. COMPARISON: 10/30/2022, 07/31/2021, 06/21/2020, 06/12/2019.screening mammogram examinations BREAST PARENCHYMAL COMPOSITION: There are scattered areas of fibroglandular density. FINDINGS: New asymmetric opacity is suggested anteriorly in the lower mid left breast. Diagnostic lef t mammogram is recommended, with ultrasound if one year. Otherwise no suspicious mass, architectural distortion, malignant calcification, skin thickening or r etraction or significant new or developing density of either breast is detected. IMPRESSION: 1. Focal asymmetric density in the lower mid left breast anteriorly 2. Diagnostic left mammogram and left breast ultrasound examination are recommended BI-RADS Category 0: Incomplete: Needs additional imaging evaluation. Reviewed, dictated and finalized at location A. IMPRESSION: 1. Focal asymmetric density in the lower mid left breast anteriorly 2. Diagnostic left mammogram and left breast ultrasound examination are recomme nded BI-RADS Category 0: Incomplete: Needs additional imaging evaluation.
== END 2023-11-06 07:33 | disposition home or self-care (01) ==
PROVIDERS: PCP Family Medicine; Visit Provider Family Medicine
DX: Z12.31 Encounter for screening mammogram for malignant neoplasm of breast (principal); R92.8 Other abnormal and inconclusive findings on diagnostic imaging of breast
CPT/HCPCS: 77063; 77067

== ENCOUNTER 2023-12-13 10:28 | Outpatient (CLI) | payer MEDICARE, SELFPAY ==
--- NOTE | ~2023-12-13 | MMUS_ITS ---
EXAMINATION: MM diagnostic lisa LT w elif, US breast LT complete HISTORY: Focal asymmetric density reported in the lower mid left breast anteriorly on 11/06/2023 scree fritz mammogram TECHNIQUE: Additional 3-D tomosynthesis images of the left breast were performed and synthetic 2-D im ages were generated. CAD analysis was submitted and interpreted. High resolution complete left breast ultrasound examination including all 4 quadrants and subareolar area was performed. COMPARISON: 11/06/2023, 10/28/2022, 07/31/2021 bilateral screening mammogram examination BREAST PARENCHYMAL COMPOSITION: There are scattered areas of fibroglandular density. FINDINGS: MAMMOGRAPHIC FINDINGS: No interval suspicious mass or architectural distortion or malignant calcification, skin thickening o r retraction or significant new or developing density of the left breast is noted since 07/31/2021. ULTRASOUND: No suspicious mass or shadowing, cysts or other significant sonographic abnormality of the left breas t is detected. IMPRESSION: 1. No mammographic or sonographic evidence of malignancy 2. Routine annual mammographic screening is recommended BI-RADS Category 1: Negative Reviewed, dictated and finalized at location A. IMPRESSION: 1. No mammographic or sonographic evidence of malignancy 2. Routine annual mammographic screening is recommended BI-RADS Category 1: Negative
== END 2023-12-13 10:29 | disposition home or self-care (01) ==
LOC: ANHIMG 10:29
PROVIDERS: PCP Family Medicine; Visit Provider Physician Assistant
DX: R92.8 Other abnormal and inconclusive findings on diagnostic imaging of breast (principal)
CPT/HCPCS: 76641; 77061; 77065; G0279

== ENCOUNTER 2025-03-16 13:48 | Outpatient (CLI) | payer MEDICARE, SELFPAY ==
--- NOTE | ~2025-03-16 | MM_ITS ---
EXAMINATION: MM screening lisa BI w elif HISTORY: Screening TECHNIQUE: Craniocaudal and mediolateral oblique 3-D tomosynthesis images were obtained and synthetic 2-D images were generated. CAD analysis was submitted and interpreted. COMPARISON: Comparison to multiple prior studies sequentially, with oldest reviewed study dated 05/17. BREAST PARENCHYMAL COMPOSITION: Not dense: There are scattered areas of fibroglandular density. FINDINGS: There is no evidence of suspicious mass, calcification, or architectural distortion to sugg est malignancy in either breast. There has been no suspicious interval change. IMPRESSION: 1. No mammographic evidence of malignancy. 2. Recommend routine screening mammography in one year. BI-RADS Category 1: Negative Reviewed, dictated and finalized at location B.
--- OUTSIDE RECORDS SUMMARY | 2025-03-16 13:54 | XMS_ITS | Clinical Summary ---
Author Organization [facility] Address [address] [place] [address] Care Team Providers Care Yeast Fermentation Attendant Name Role Phone Ajay Irvin MD Primary Care Provider [phone] Source Comments [facility] ([employer]),non-owned Affiliates and Associated Physician Practices is amultiple site organization consisting of ambulatory clinics and hospital sitesin [place], [place], [place] and [place]. This disclosure is being madepursuant to the Care Everywhere program and may not contain all information available regarding this patient. Last updated 18.[facility] Allergies Active Allergy Reactions Criticality Noted Date Comments Tramadol Nausea and/or Vomiting Low 11/28/2009 Chills Severe Vomiting chest pain Medications * Be aware that medications may not be up to date on this document. Alwaysverify current medications with the patient. 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 Family History Medical History Relation Name Comments CAD (Coronary Artery Disease) Father Cancer - Bladder Father Diabetes Father Hypercholesterolemia Father Hypertension Father Aneurysm, Aortic Maternal Grandfather CAD (Coronary Artery Disease) Maternal Grandfather CAD (Coronary Artery Disease) Maternal Grandmother Cancer Maternal Grandmother CAD (Coronary Artery Disease) Paternal Grandfather CAD (Coronary Artery Disease) Paternal Grandmother Relation Name Status Comments Father Maternal Grandfather Maternal Grandmother Paternal Grandfather Paternal Grandmother Social History Tobacco Use Types Packs/Day Years Used Date Smoking Tobacco: Never Smokeless Tobacco: Never Tobacco Cessation:Counseling Given: Not Answered Alcohol Use Standard Drinks/Week Comments Yes 2 (1 standard drink = 0.6 oz pur e alcohol) occ PHQ-2 Answer Date Recorded Patient Health Questionnaire-2 Score 0 03/13/2025 Comments No Sex and Gender Information Value Date Recorded Sex Assigned at Not on file Legal Sex Female 9:30 AM DIRECTOR OF VOLUNTEER SERVICES Gender Identity Not on file Sexual Orientation Not on file Last Filed Vital Signs Vital Sign Reading Time Taken Comments Blood Pressure 126/74 01/28/2024 1:13 PM CDT Pulse 80 01/10/2019 2:42 PM CDT Temperature 36.4 C (97.5 F) 01/28/2024 1:13 PM CDT Respiratory Rate 20 10/21/2010 8:52 AM DIRECTOR OF VOLUNTEER SERVICES Oxygen Saturation 94% 01/10/2019 2:42 PM CDT Inhaled Oxygen Concentration - - Weight 94.7 kg (208 lb 12.8 oz) 01/28/2024 1:13 PM CDT Height 165.1 cm (5' 5) 01/28/2024 1:13 PM CDT Body Mass Index 34.75 01/28/2024 1:13 PM CDT Plan of Treatment Upcoming Encounters Date Type Department Care Team (Late st Contact Info) Description 03/20/2025 9:50 AM CDT Office Visit [facility] [address] [facility] [address] [place] [address] Gina Matute Che, MD [address] [place] [address] Health Maintenance Due Date Last Done Comments BONE DENSITY TESTING 1950 MEDICARE AWV 12 MONTHS 1950 HEPATITIS C SCREENING 04/24/1966 DTAP/TDAP/TD VACCINES (1 - Tdap) 1967 PNEUMOCOCCAL VACCINE 50+ (1 of 1 - PCV) 1998 ZOSTER VACCINE (1 of 2) 1998 Respiratory Syncytial Virus (RSV) Vaccine Pt: or over 60 yrs (1 - 1-dose 75+ series) 2023 COVID-19 VACCINE (1 - 2023-2 5 season) 2024 DEPRESSION SCREENING 08/16/2024 01/27/2023 INFLUENZA VACCINE (#1) 2025 HEPATITIS B VACCINE Aged Out No longe r eligible based on patient's age to complete this topic HIB VACCINE Aged Out No longer eligi ble based on patient's age to complete this topic HPV VACCINE Aged Out No longer eligi ble based on patient's age to complete this topic MENINGOCOCCAL (Group B) VACC INE SHARED DECISION-MAKING Aged Out No longer eligibl e based on patient's age to complete this topic MENINGOCOCCAL GROUPS A/C/Y/W VACCINE Aged Out No longer eligible b ased on patient's age to complete this topic Insurance MEDICARE [facility] MEDICARE [employer] Advance Directives Documents on File Type Date Recorded Patient Phlebotomy Support Tech Expl anation Adv Directive/Living Will/POA 10/22/2010 11:11 PM * Full Code (Latest Code Status on File) Date Activated Date Inactivated Comments 10/20/2010 10:37 AM 10/21/2010 10:43 PM Care Teams Yeast Fermentation Attendant Relationship Specialty Start Date End Date Ajay Irvin MD [address] [facility] [place] [address] PCP - General 12/15/17
--- OUTSIDE RECORDS SUMMARY | 2025-03-16 13:54 | XMS_ITS | Clinical Summary ---
Author Organization [facility] Address [address] [place] [id number] Care Team Providers Care Plastic Sewer Name Role Phone Ajay Irvin MD Primary Care Provider Allergies Active Allergy Reactions Criticality Noted Date Comments Tramadol Nausea And Vomiting Low 11/28/2009 Chills Severe Vomiting chest pain Social History Tobacco Use Types Packs/Day Years Used Date Smoking Tobacco: Never Assessed Personal Safety Answer Date Recorded Getting School Help Needed Not on file 10/30 Comments Unknown Sex and Gender Information Value Date Recorded Sex Assigned at Not on file 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
--- OUTSIDE RECORDS SUMMARY | 2025-03-16 13:54 | XMS_ITS | Referral Summary ---
Author Organization 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 [address] [place] [address] PCP - General Family Medicine 07/08/20
--- OUTSIDE RECORDS SUMMARY | 2025-03-16 13:54 | XMS_ITS | Continuity of Care Document ---
Author Organization [facility] Address [address] [place] [address] [place] [address] Phone Care Team Providers Care Army Officer Name Role Phone Jeannette Carrasco Unavailable Unavailable Procedures Procedure Date Eye Exam & Treatment Refraction Eye Exam & Treatment Refraction Office/outpatient Visit, [facility] Advance Directives Directive Yes / No Effective Date File Name No Information Encounters Encounter Description Practice Location Reason(s) For Visit Diagnoses Date Provider Providers Copied on Encounter [facility], [address] [place] [address] [address], [place], [place], [id number], tel:[phone] [facility] No Information 0-201 0 Luna Machado. [address], [place], [place], [facility], . tel:[phone] [facility], [address] [place] [address] [address], [place], [place], [id number], tel:[phone] [facility] No Information 7200 [address] Luna Tim [address], [place], [address], [place]. tel:[phone] Office/outpat ient Visit, [facility], [address] [place] [address] [address], [place], [place], [id number], [place] tel:[phone] [facility] No Information 5-200 9 Luna Machado. [address] , [address], [place], [address], [place]. tel:[phone] Family History Family Member Type Diagnosis Age At Onset No Information Payers Payer name Insurance type Covered constitution party ID Authoriza tion(s) No Information Social History Type Description Quantity Date Captured Comments Sex Female Smoking Status No Information Chief Complaint And Reason For Visit No Information Reason For Referral Reason For Referral No Information History Of Present Illness Encounter Date Complaint History Of Prese nt Illness No Information Functional Status Date Functional Assessmen t No Information Instructions Date Instruction Additional Infor mation No Information Assessments Type Assessment Date No Information Patient Care Teams Name Effective Dates (start - stop) Status Members No Information
== END 2025-03-16 13:49 | disposition home or self-care (01) ==
LOC: ANHIMG 13:49
PROVIDERS: PCP Family Medicine; Visit Provider Family Medicine
DX: Z12.31 Encounter for screening mammogram for malignant neoplasm of breast (principal)
CPT/HCPCS: 77063; 77067